=== PATIENT | male | born 1965 | race Caucasian/White ===

== ENCOUNTER → 2025-05-27 | Outpatient (CLI) | payer OTHER, SELFPAY ==
--- NOTE | 2025-05-27 13:10 | MRI_ITS ---
PROCEDURE: PELVIS W/WO CONTRAST, 05/27/2025 REASON FOR EXAM: RADIATION PLANNING, EVAL EXTENT OF DISEASE TECHNIQUE: Multisequence multiplanar MRI pelvis was performed with and without IV contrast. IV Contrast: 14 mL Clariscan COMPARISON: 05/05/2025 FINDINGS: Variable overall mild motion limitation. Prostate size: 4.0 x 2.9 x 3.3 cm, estimated volume 19.9 mL. Placement of spacer material between the anterior rectum and posterior prostate. Spacing material is located asymmetrically to the RIGHT with small areas of essentially persistent contact between the LEFT anterolateral rectum and the LEFT posterolateral medial prostate at the level of the base to midgland, with slightly greater direct contact at the level of the apex. Suspect fiducial markers are present. Suspected mild 2 anterior rectal wall infiltration. Associated circumferential but predominantly anterior mesorectal edema and enhancement is present. Transition zone: As below. Otherwise, there are PI-RADS 2 findings. Peripheral Zone: Background changes of likely prostatitis. Ill-defined signal in the anterior gland slightly asymmetric to the RIGHT, very difficult to measure on T2, spanning up to roughly 1.9 cm at the level of the midgland to apex (series 12 images 15-17). This appears to involve [id number] anterior transition zones, anterior fibromuscular stroma, and probably the overlying anterior peripheral zone. Mild/moderate restricted diffusion with associated early/contemporaneous enhancement, consistent with PI-RADS 4. Extracapsular extension:No gross extracapsular extension, however, there is capsular abutment greater than 1 cm which increases the risk of occult early/microscopic extracapsular extension. Neurovascular bundles: Unremarkable. Seminal vesicles: Unremarkable. Bladder: Bladder wall thickening may suggest chronic bladder outlet obstruction. Lymph nodes: Unremarkable. Bones: No destructive or frankly suspicious bony lesions identified. Other: None. MRI/Pelvis W/WO Contrast IMPRESSION: 1. Interval placement of spacing material between the anterior rectum and poste rior prostate, asymmetric to the RIGHT with areas of persistent direct contact as detailed, greatest at the apex and on the LEFT. Suspected mild grade 2 anterior rectal wall infiltration. Associated inflammatory changes in the predominantly anterior mes orectum are not expected and could suggest associated infection. Correlate with clinical evaluation. 2. Ill-defined 1.9 cm PI-RADS 4 lesion centered in the anterior gland slightly asymmetric to the RIGHT at the level of the midgland to apex as described. 3. No gross extracapsular extension, however, there is capsular abutment greate r than 1 cm which increases the risk of occult early/microscopic extracapsular extension. 4. No overt pelvic lymphadenopathy. 5. Additional description as above. Reading Location: [id number]
== END | disposition home or self-care (01) ==
LOC: OPMRI 13:09
PROVIDERS: PCP Family Medicine; Referring Provider Student in an Organized Health Care Education/Training Program; Visit Provider Student in an Organized Health Care Education/Training Program
DX: C61 Malignant neoplasm of prostate (principal)
CPT/HCPCS: 72197; A9575; A4216